=== PATIENT | male | born 1955 | race Caucasian/White ===

== ENCOUNTER 2019-06-25 15:21 | Emergency (ER) | payer MEDICARE ==
[~2019-06-25] VITALS: Ht 175.3 cm; Wt 82.0 kg
[~2019-06-25 15:21] MED LIST: FERR-63; METH4TAB17; PROM6.2514; SULF500T8
[2019-06-25] MEDS ORDERED: KETOROLAC 60MG/2ML VIAL IM ONE (18:00)
[2019-06-25 19:28] VITALS: BP 134/79
== END 2019-06-25 19:28 | disposition home or self-care (01) ==
LOC: ER 16:42
DX: S60.562A Insect bite (nonvenomous) of left hand, initial encounter (principal); S60.862A Insect bite (nonvenomous) of left wrist, initial encounter; L03.114 Cellulitis of left upper limb; W57.XXXA Bitten or stung by nonvenomous insect and other nonvenomous arthropods, initial encounter; Y93.89 Activity, other specified; Y92.89 Other specified places as the place of occurrence of the external cause
CPT/HCPCS: 73110; 73130; 96372; 99283; J1885

== ENCOUNTER 2019-06-27 12:59 | Emergency (ER) | payer MEDICARE, OTHER ==
[~2019-06-27] VITALS: Ht 170.2 cm; Wt 90.0 kg
[2019-06-27 14:58] VITALS: BP 112/76
== END 2019-06-27 14:59 | disposition home or self-care (01) ==
LOC: ER 12:59
DX: L03.114 Cellulitis of left upper limb (principal); R03.0 Elevated blood-pressure reading, without diagnosis of hypertension
CPT/HCPCS: 99283